=== PATIENT | female | born 1990 | race Hispanic/Latino ===

== ENCOUNTER 2018-05-27 10:55 | Outpatient (CLI) | payer BC ==
--- NOTE | 2018-05-27 13:58 | RAD ---
SEVEN VIEWS OF THE CERVICAL SPINE: COMPARISON: None. HISTORY: Cervicalgia. Low neck pain for 2 months. FINDINGS: AP, lateral, open-mouth odontoid, oblique, and flexion/extension views of the cervical spine were per formed. The vertebral bodies and intervertebral disks demonstrate normal height and alignment withou t fracture or subluxation. No degenerative changes are seen. No prevertebral soft tissue swelling i s seen. IMPRESSION: Unremarkable exam. POS: ANGEL
== END 2018-05-27 10:56 | disposition home or self-care (01) ==
LOC: BICRAD 10:55
PROVIDERS: ATTEND Internal Medicine Rheumatology
DX: M54.2 Cervicalgia (principal)
CPT/HCPCS: 72052

== ENCOUNTER 2018-10-02 17:57 | Emergency (ER) | payer BC ==
[2018-10-02] MEDS ORDERED: Dexamethasone 10 MG/ML VIAL ONE (18:50)
== END 2018-10-02 19:06 | disposition home or self-care (01) ==
LOC: ERS 17:57
DX: J30.2 Other seasonal allergic rhinitis (principal)
CPT/HCPCS: 87081; 87430; 87804; 99283; J1100

== ENCOUNTER 2019-01-09 14:55 | Outpatient (CLI) | payer BC ==
--- NOTE | 2019-01-09 15:56 | ULT ---
TRANSABDOMINAL AND TRANSVAGINAL PELVIC ULTRASOUND WITH ELDER SCALE AND COLOR FLOW AND SPECTRAL DOPPLER IMAGING: Date: 01/09/19 HISTORY: Irregular menses FINDINGS: The uterus measures 8.6 x 4.7 x 4.0 cm without focal mass or endometrial fluid. The endometrium measu res 5 mm in thickness. There are nabothian cysts in the cervix. There is a tiny echogenic focus in th e cervix of unknown etiology. The right ovary measures 2.4 x 1.3 x 1.2 cm. The left ovary measures 2.2 x 1.7 x 1.3 cm. Flow is demo nstrated to both ovaries. No adnexal mass or free fluid in the cul-de-sac seen. IMPRESSION: No significant abnormalities are identified. POS: ANGEL
== END 2019-01-09 14:56 | disposition home or self-care (01) ==
LOC: BICULT 14:55
PROVIDERS: ATTEND Family Medicine
DX: N92.6 Irregular menstruation, unspecified (principal)
CPT/HCPCS: 76856

== ENCOUNTER 2021-04-27 08:45 | Outpatient (CLI) | payer BC | END 2021-04-27 08:46 | disposition home or self-care (01) | LOC: BICULT 08:45 | PROVIDERS: ATTEND Family Medicine | DX: Z34.82 Encounter for supervision of other normal pregnancy, second trimester (principal); Z3A.20 20 weeks gestation of pregnancy | CPT/HCPCS: 76805 ==